=== PATIENT | male | born 1955 | race Caucasian/White ===

== ENCOUNTER 2024-08-23 09:25 | Day surgery (SDC) | payer MEDICARE ==
[2024-08-14 10:46] VITALS: BP 141/75
[~2024-08-23] VITALS: Ht 175.3 cm; Wt 97.3 kg
[~2024-08-23 09:25] MED LIST: DOXAZOSIN MESYLA1 MG PO; FELODIPINE ER5 MG PO; GLUCOSAMINE CH1 EAC4 PO; IBLOOD GLUCOSE TEST STRIP 1 EA TEST VI PRN; LACTATED RINGER'S 1,000 ML IV SCH; LIDOCAINE HCL 1% 5 ML SDV INJ ONE; LUTEIN10 MG PO; SULFASALAZINE500 MG PO; VITAMIN C1000 MG PO; VITAMIN D35000 UNIT PO; ZESTRIL40 MG PO
[2024-08-23 09:30] VITALS: BP 176/71
--- NOTE | 2024-08-23 09:41 | NUR ---
KIRK AT BS. PT COMFORTABLE.
[2024-08-23] MEDS ORDERED: LIDOCAINE HCL 2% 5 ML SDV ONE (10:25)
[2024-08-23] MEDS ORDERED: propofoL 200 MG/20 ML VIAL ONE (10:25)
--- NOTE | 2024-08-23 11:15 | NUR ---
08/23/24 1115 Darcy Rob 1057- PT ARRIVES TO THE PACU WITH A NATURAL AIRWAY. BREATHING IS EVEN AND UNLABORED WITH 6L OF O2 VIA MASK. PT IS ON HIS LEFT SIDE. ABDOMEN IS SOFT AND NONDISTENDED. ALL MONITORS PUT IN PLACE. VSS. LR INFUSING IN R WRIST. 1108- PT OPENS EYES. PT DENIES PAIN AND NAUSEA. ENCOURAGED TO PASS GAS. 1109- PT PASSING GAS OFF AND ON. PT RESTING WITH EYES CLOSED AND EASILY WAKES TO VERBAL STIMULI.
[2024-08-23 11:28] VITALS: BP 142/74
--- NOTE | 2024-08-23 12:19 | OR ---
[facility] [address], [place] [address] Signed DATE OF OPERATION: 08/23/2024 SURGEON: Sherin Thomas MD PREOPERATIVE DIAGNOSES: 1. Personal history of adenomatous polyps in his colon in 2007 and 2018. 2. Internal hemorrhoids. POSTOPERATIVE DIAGNOSES: 1. 5 mm polyp at mid right colon. 2. 4 mm polyp at 23 cm in sigmoid colon. 3. 3 mm polyp at 18 cm in distal sigmoid colon. 4. Minimal right and left-sided diverticulosis. 5. Minimal internal hemorrhoid tissue. PROCEDURE: Colonoscopy with hot biopsy. ESTIMATED BLOOD LOSS: None. INDICATIONS: Shady is a -[id number]-[id number] gentleman, asked to see me for his fourth colonoscopy. I helped him for screening purposes in 2007 at the age of 52. He had a 5 mm serrated adenomatous polyp at 30 cm. He stayed on the five year plan. He came in 2012 at age 57 and had hyperplastic polyp less than 5 mm in diameter. He then came in 2018 at age of 62 and had a 5 mm tubular adenomatous polyp taken out at 80 cm. He was known to have just a little bit internal hemorrhoids. His need for Versed and fentanyl had continued to climb particular in mcfp. He said he is using a little more beer than usual and added in a little marijuana. The nurses had to spent quite a bit of time to maintain his airway. We felt it would be much better on this occasion to use monitored anesthesia care propofol infusion. That proved to be a decker decision. He has done quite well in that regard. He has also talked to me about when he can stop having colonoscopies. He told me both his parents lived into the 80s. He understands adenomas polyps can grow and become cancer over 8 to 12 years. Consequently, when patients get within 10 years of the end of the life, they can discontinue their colonoscopies. Today, he felt like this might be his last one. Based on his results before and today, I would suggest he continue on the five year plan. He said he has no lower GI complaints. He had an echocardiogram recently for his benign heart murmur. He said that was unremarkable. 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 He Electronically Signed By: SHERIN THOMAS MD 08/23/24 1219 PATIENT NAME: SHADY RANDALL OPERATIVE REPORT DATE OF : 57 REPORT #: [id number] PHYSICIAN: SHERIN THOMAS MD PCP: DARLIN ELLIS PAC REPORT IS CONFIDENTIAL AND NOT TO BE RELEASED WITHOUT AUTHORIZATION [facility] [address] [place], [place] [address] Signed said he has no family history of colon cancer or polyps. In the office, I had given him our brochure on colonoscopy. He recalls the nature of the test. There is risk including, but not limited to gas bloating, crampy abdominal pain, bleeding, perforation requiring surgery, and missed diagnosis. We also reviewed the written instructions for the bowel prep line by line. He is very familiar with our bowel prep at this point in time. We also reviewed the need for monitored anesthesia care. He understands an adult person has to take him home afterwards. He had expressed understanding and wished to proceed. DESCRIPTION OF PROCEDURE: Shady was taken into our endoscopy suite and placed in the left lateral decubitus position. He was given monitored anesthesia care, propofol infusion per our nurse client partner. A digital rectal exam was performed and this was unremarkable. He had no external hemorrhoids. He had good sphincter tone. There were no masses. The adult colonoscope was introduced and advanced all the way around into the cecum under direct visualization of camera without difficulty. His prep was good as always. We could easily see the appendiceal orifice and ileocecal valve. The scope was then slowly withdrawn. He had a few diverticula in the right colon as well as the left and sigmoid colon. They were average in size, few in number and scattered about. The above-mentioned polyps have been removed with the help of hot biopsy forceps. Once in the rectum, the scope was retroflexed. He really has very minimal if any internal hemorrhoid tissue. After this, the gas was suctioned out. Colonoscope removed. Shady tolerated his procedure quite well. RECOMMENDATIONS: I will see Shady back in my office in 7 to 14 days to review his results. I would recommend he stay on the five year plan particularly since both of his parents lived in their 80s. MD MAR Willis/FATIMAHL /[id number] cc: Darlin Ellis PA-C Electronically Signed By: SHERIN THOMAS MD 08/23/24 1219 PATIENT NAME: SHADY RANDALL OPERATIVE REPORT DATE OF : 57 REPORT #: [id number] PHYSICIAN: SHERIN THOMAS MD PCP: DARLIN ELLIS PAC REPORT IS CONFIDENTIAL AND NOT TO BE RELEASED WITHOUT AUTHORIZATION [facility] [address] [facility] [place], [place] [address] Signed Sherin Thomas MD Copies: SHERIN THOMAS MD ~ Electronically Signed By: SHERIN THOMAS MD 08/23/24 1219 PATIENT NAME: SHADY RANDALL OPERATIVE REPORT DATE OF : 57 REPORT #: [id number] PHYSICIAN: SHERIN THOMAS MD PCP: DARLIN ELLIS PAC REPORT IS CONFIDENTIAL AND NOT TO BE RELEASED WITHOUT AUTHORIZATION
--- NOTE | 2024-08-25 11:55 | PATH ---
[facility] [address] [place], [place] [address] Signed SPECIMEN(S): A MID ASCENDING POLYP SPECIMEN(S): B SIGMOID POLYP SPECIMEN(S): C DISTAL SIGMOID POLYP SPECIMEN SOURCE: A. MID ASCENDING POLYP B. SIGMOID POLYP C. DISTAL SIGMOID POLYP CLINICAL HISTORY: Polyps. Diverticulosis right and left colon. FINAL PATHOLOGIC DIAGNOSIS: A. Mid ascending colon polyp: - Tubular adenoma, negative for high-grade dysplasia. B. Sigmoid colon polyp at 22 cm: - Hyperplastic polyp, negative for dysplasia. C. Distal sigmoid colon polyp at 18 cm: - Hyperplastic polyp, negative for dysplasia. NA MICROSCOPIC EXAMINATION: Histologic sections of all submitted blocks are examined by light microscopy. These findings, together with the gross examination, support the pathologic diagnosis. GROSS DESCRIPTION: A. The specimen, labeled and designated "Dillavou, mid ascending colon polyp," is received in formalin and consists of one yuen soft tissue fragment, 0.2 cm. Entirely submitted in (A1). B. The specimen, labeled and designated "Dillavou, sigmoid colon polyp at 22 cm," is received in formalin and consists of two yuen soft tissue fragments, ranging from 0.1 to 0.2 cm. Entirely submitted in (B1). C. The specimen, labeled and designated "Dillavou, distal sigmoid colon polyp at 18 cm," is received in formalin and consists of one yuen soft tissue fragment, 0.1 cm. Entirely submitted in (C1). JS (under the direct supervision of a pathologist) The Gross Description was prepared using a voice recognition system. The report was reviewed for accuracy; however, sound-alike word errors, addition and/or deletions may occur. If there is any PATIENT NAME: OMAR RANDALL PATHOLOGY DATE OF : 57 REPORT #: [id number] PHYSICIAN: ADRIENNE MICHAUD PCP: DARLIN ELLIS PAC REPORT IS CONFIDENTIAL AND NOT TO BE RELEASED WITHOUT AUTHORIZATION [facility] [address] [place], [place] [address] Signed question about this report, please contact Client Services. ADDITIONAL NOTES: Immunohistochemical and/or in situ hybridization studies if performed in this case included appropriate positive controls that reacted as expected. This test was developed and its performance characteristics determined by [facility]. It has not been cleared or approved by the U.S. Food and Drug Administration. The FDA has determined that such clearance or approval is not necessary. This test is used for clinical purposes. It should not be regarded as investigational or for research. [facility] is certified under the Clinical Laboratory Improvement Amendments of 1988 (CLIA) as qualified to perform high complexity clinical laboratory testing. PERFORMING LABORATORY: Technical component was performed by [facility], [address] [place] [address] (CLIA# [id number]). Professional interpretation was performed by [facility], [address] [place] [address] (CLIA#: [id number]). Diagnostician: Bam Lynch MD Pathologist Electronically Signed 08/25/2024 Copies: ~ PATIENT NAME: OMAR RANDALL PATHOLOGY DATE OF : 57 REPORT #: [id number] PHYSICIAN: ADRIENNE PATHOLOGY PCP: DARLIN ELLIS PAC REPORT IS CONFIDENTIAL AND NOT TO BE RELEASED WITHOUT AUTHORIZATION
== END 2024-08-23 11:39 | disposition home or self-care (01) ==
LOC: DS 09:25
PROVIDERS: ATTEND Colon & Rectal Surgery
PROC: 0DBN8ZZ Excision of Sigmoid Colon, Via Natural or Artificial Opening Endoscopic (ICD-10-PCS; 2024-08-23)
PROC: 0DBF8ZZ Excision of Right Large Intestine, Via Natural or Artificial Opening Endoscopic (ICD-10-PCS; principal; 2024-08-23 10:30)
DX: Z12.11 Encounter for screening for malignant neoplasm of colon (principal); D12.2 Benign neoplasm of ascending colon; K63.5 Polyp of colon; K57.30 Diverticulosis of large intestine without perforation or abscess without bleeding; K64.8 Other hemorrhoids; L40.50 Arthropathic psoriasis, unspecified; E78.5 Hyperlipidemia, unspecified; I10 Essential (primary) hypertension; Z86.0101 Personal history of adenomatous and serrated colon polyps; Z79.899 Other long term (current) drug therapy; Z88.0 Allergy status to penicillin; Z88.8 Allergy status to other drugs, medicaments and biological substances
CPT/HCPCS: 00811; 88305; J2003; J2704; J7121